=== PATIENT | male | born 1955 | race Caucasian/White ===

== ENCOUNTER 2023-10-06 08:01 | Day surgery (SDC) | payer MEDICARE, OTHER ==
[~2023-10-06 08:01] MED LIST: Lactated Ringers 1,000 ML IV SCH; Sodium Chloride 0.9% 10 ML Syringe FLUSH PRN
[2023-10-06] MEDS ORDERED: Lidocaine 2% 100 MG/5 ML Syringe IVPUSH ONE (08:02)
[2023-10-06] MEDS ORDERED: Propofol 200 MG/20 ML SDV IV ONE (08:02)
[2023-10-06] MEDS ORDERED: Phenylephrine 0.5% Nasal Spray 15 ML Bot NAS ONE (08:02)
[2023-10-06] MEDS ORDERED: Midazolam 1 MG/ML 2 ML SDV IV ONE (08:02)
[2023-10-06] MEDS: Simethicone Drops 40 MG/0.6 ML 30 ML Bottle ONE (10:17)
== END 2023-10-06 11:53 | disposition home or self-care (01) ==
LOC: FB.SDS 08:01
PROVIDERS: ATTEND Surgery
DX: Z12.11 Encounter for screening for malignant neoplasm of colon (principal); K63.5 Polyp of colon; K62.1 Rectal polyp; K57.30 Diverticulosis of large intestine without perforation or abscess without bleeding; Z86.010 Personal history of colon polyps; Z80.0 Family history of malignant neoplasm of digestive organs; I10 Essential (primary) hypertension; K21.9 Gastro-esophageal reflux disease without esophagitis; Z87.891 Personal history of nicotine dependence; Z79.899 Other long term (current) drug therapy; Z88.2 Allergy status to sulfonamides
CPT/HCPCS: 00811; 45384; 45385; 88305; A9270; J2250; J2704

== ENCOUNTER 2024-01-08 15:12 | Emergency (ER) | payer MEDICARE, OTHER ==
[2024-01-08] MEDS: Albuterol/Ipratropium 3.0-0.5 MG/3 ML Neb Soln NEB ONE (15:31)
== END 2024-01-08 16:19 | disposition home or self-care (01) ==
LOC: FB.ED 15:12
DX: J06.9 Acute upper respiratory infection, unspecified (principal); I10 Essential (primary) hypertension; Z79.899 Other long term (current) drug therapy; Z88.2 Allergy status to sulfonamides
CPT/HCPCS: 99283; J7620